=== PATIENT | male | born 1950 | race Caucasian/White ===

== ENCOUNTER 2020-01-16 10:00 | Outpatient (CLI) | payer MEDICARE, BC ==
--- NOTE | 2020-01-16 18:26 | RAD ---
RIGHT FOOT THREE VIEWS: 01/16/20 There is a relatively small calcaneal spur present. Aside from this, the calcaneus otherwise appears normal. No soft tissue calcifications were seen. No fracture or periosteal reaction was seen in the r emainder of the foot. The tarsal relationships seem normal. IMPRESSION: Small calcaneal spur. Please fax results to [phone]. POS: HOME
== END 2020-01-16 10:01 | disposition home or self-care (01) ==
LOC: BURRAD 10:00
PROVIDERS: ATTEND Family Medicine
DX: M79.671 Pain in right foot (principal); M77.31 Calcaneal spur, right foot